=== PATIENT | male | born 1945 | race Caucasian/White ===

== ENCOUNTER 2022-12-04 07:30 | Emergency (ER) | payer OTHER, MEDICARE ==
[~2022-12-04] VITALS: Ht 177.8 cm; Wt 58.6 kg
[2022-12-04 07:35] VITALS: BP 184/112; PULSE 88; RESP 18; TEMP 98.6; O2SAT 98
== END 2022-12-04 09:45 | disposition home or self-care (01) ==
LOC: ER 07:30
DX: M79.601 Pain in right arm (principal); Z88.5 Allergy status to narcotic agent; Z79.899 Other long term (current) drug therapy
CPT/HCPCS: 99282

== ENCOUNTER 2024-12-16 14:49 | Inpatient (IN) | payer OTHER, MEDICARE ==
[~2024-12-16] VITALS: Ht 177.8 cm; Wt 57.7 kg
--- NOTE | 2024-12-16 14:57 | ELECTROCARDIOGRAPH REPORT ---
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
[2024-12-16 15:17] LABS: MEAN PLATELET VOLUME 6.9 FL (7.4-10.4); RED CELL DISTRIBUTION WIDTH 15.4 % (11.5-14.5)
--- NOTE | 2024-12-16 15:24 | RADIOLOGY REPORT ---
CHEST RADIOGRAPH Indication: CP Technique: Single frontal view of the chest was obtained COMPARISON: None FINDINGS: Lines and Tubes: None Lungs: Right upper lobe scarring. Right mid and lower lung airspace disease. Pleura: Small right pleural effusion. No pneumothorax. Cardiomediastinal contours: Unremarkable Bones: Unremarkable IMPRESSION: Right mid and lower lung airspace disease. Small right pleural effusion.
[2024-12-16 15:33] LABS: BANDS% (MANUAL) 1.0 % (0-10); LYMPHOCYTES % (MANUAL) 1.0 % (21-51); MONOCYTES % (MANUAL) 2.0 % (2-12); NEUTROPHILS % (MANUAL) 96.0 % (42-75); PLATELET ESTIMATE INCREASED
[2024-12-16 15:39] LABS: CREATININE 1.08 MG/DL (0.60-1.10); PRO BRAIN NATRIURETIC PEPTIDE 914 PG/ML (0-450); TOTAL CARBON DIOXIDE 30.6 MMOL/L (24-32); eCRCL 47 ML/MIN; eGFR 66 ML/MIN
[2024-12-16] MEDS ORDERED: CefTRIAXone 2gm/NS 100ml IVPB 50 ML IV ONE (17:10)
[2024-12-16] MEDS ORDERED: azithromycin/NS 500mg/250ml 250 ML IV ONE (17:10)
[2024-12-16] MEDS: CefTRIAXone 2gm/D5W 50ml BAG 50 ML IV ONE (17:42)
[2024-12-16] MEDS: normal saline 1000ML IV soln IVB ONE (17:42)
--- NOTE | 2024-12-16 18:12 | Physician Documentation ---
History of Present Illness ~ Chief Complaint: Shortness of Breath Stated Complaint: SOB Time Seen by MD: 18:06 Mode of Arrival: EMS, Stretcher HPI Patient presents to the emergency room with one-week history of increasing shortness of breath. He went to the [facility] today and was instructed go to the emergency room for a chest x-ray abnormality. Patient does occasionally smoke. Medication Reconciliation Allergies: Coded Allergies: morphine (Verified Allergy, Intermediate, FEELS "BUGS IN HIS BLOODSTREAM", 12/04/22) Uncoded Allergies: CONTRAST IV IODINE (Allergy, Unknown, 12/04/22) Scheduled Albuterol Sulfate Nebs* (Proventil Nebs*), 1 VIAL NEB Q4H, (Reported) Amlodipine Besylate (Amlodipine Besylate), 1 TABLET PO DAILY, (Reported) Azithromycin (Azithromycin), 1 TAB PO UD, (Reported) Cefpodoxime Proxetil (Cefpodoxime Proxetil), 1 TAB PO Q12H, (Reported) Diclofenac Sodium (Diclofenac Sodium), 1 APPLIC TOP Q6H, (Reported) Lidocaine (Lidocaine), 1 PATCH TOP DAILY, (Reported) Magnesium Oxide (Magnesium), 1 CAP PO DAILY, (Reported) Prednisone (Prednisone), 1 TAB PO DAILY, (Reported) Rosuvastatin Calcium (Rosuvastatin Calcium), 1 TAB PO DAILY, (Reported) Miscellaneous Medications Tiotropium Br/Olodaterol HCl (Stiolto Respimat Inhaler (10)), (Reported) Review of Systems ROS All review of systems negative except as per HPI Physical Exam Vital Signs: Temperature: 99.5, Source: Oral, Heart Rate: 87, Respiratory Rate: 20, BP: 140/82, Pulse Oximetry: 92, Weight: 57.700 Oxygen Flow Rate: 0 Physical Exam General: Patient is awake, alert, oriented x4 in no acute distress Head: Normocephalic and atraumatic. Eyes: Conjunctival normal. EOMI. PERRL. ENT: Mucous membranes moist. Neck: Supple, trachea is midline. Chest: Clear to auscultation bilaterally without rales, rhonchi, or wheezes. There is no accessory muscle use or retractions. Cardiac: RRR without murmurs, gallops, or rubs. Abd: Soft, nondistended, nontender, with normoactive bowel sounds. No guarding, rebound, or rigidity. Progress Results/Orders Results/Orders Orders - ELVIN GUARDADO MD Page Hospitalist (12/16/24 18:37) Fill Out Med Reconciliation (12/16/24 18:37) Completed Orders - ELVIN GUARDADO MD Azithromycin/Ns 500mg/250ml (Zithromax/N (12/16/24 18:15) Normal Saline 1000ml (0.9% Sodium Chlori (12/16/24 18:15) Medications Received in ER Medications (Trade) Dose Ordered Sig/Emiliano Route PRN Reason Start Time Stop Time Status Last Admin Dose Admin (0.9% sodium chloride (NS) 1000ml IV soln) 1,000 ml ONCE ONCE IVB 12/16/24 17:10 12/16/24 17:12 DC 12/16/24 17:42 1,000 ML Ceftriaxone Sodium/Dextrose 50 ml @ 100 mls/hr ONCE ONCE IV 12/16/24 17:13 12/16/24 17:39 DC 12/16/24 17:42 100 MLS/HR Azithromycin 250 ml @ 250 mls/hr ONCE ONCE IV 12/16/24 18:15 12/16/24 19:14 DC 12/16/24 18:39 250 MLS/HR Sodium Chloride 1,000 ml @ 1,000 mls/hr ONCE ONCE IV 12/16/24 18:15 12/16/24 19:14 DC 12/16/24 18:43 1,000 MLS/HR Sodium Chloride 1,000 ml @ 100 mls/hr Q10H IV 12/16/24 20:00 12/16/24 20:00 100 MLS/HR (Solu-Medrol 40mg inj.) 40 mg BID IV 12/16/24 20:35 12/16/24 21:30 40 MG Vital Signs 12/16/24 12/16/24 12/16/24 12/16/24 14:53 15:36 16:26 18:43 Temp 99.5 99.5 Pulse 106 87 97 Resp 20 19 20 22 B/P (MAP) 140/87 140/82 (101) 155/77 (103) Pulse Ox 95 92 95 O2 Flow Rate 0 0 0 12/16/24 12/16/24 12/16/24 18:49 19:41 19:41 Temp 99.5 Pulse 101 Resp 26 24 B/P (MAP) 146/88 (107) Pulse Ox 96 99 O2 Delivery Nasal Cannula* O2 Flow Rate 3 3 FiO2 32 32 Laboratory Tests Test 12/16/24 15:08 12/16/24 16:57 12/16/24 17:20 12/16/24 17:28 White Blood Count 25.4 *H Red Blood Count 4.03 L Hemoglobin 11.8 L Hematocrit 36.0 L Mean Corpuscular Volume 89.1 Mean Corpuscular Hemoglobin 29.3 Mean Corpuscular Hemoglobin Concent 32.9 L Red Cell Distribution Width 15.4 H Platelet Count 478 H Mean Platelet Volume 6.9 L Neutrophils (%) (Auto) 92.9 H Lymphocytes (%) (Auto) 1.7 L Monocytes (%) (Auto) 5.0 Eosinophils (%) (Auto) 0 Basophils (%) (Auto) 0.4 Neutrophils # (Auto) 23.6 H Lymphocytes # (Auto) 0.4 L Monocytes # (Auto) 1.3 H Eosinophils # (Auto) 0.0 Basophils # (Auto) 0.1 CBC Comment Differential Total Cells Counted 100 Neutrophils % (Manual) 96.0 H Band Neutrophils % 1.0 Lymphocytes % (Manual) 1.0 L Monocytes % (Manual) 2.0 Platelet Estimate Increased Red Blood Cell Morphology Normal Basophilic Stippling Sodium Level 138 Potassium Level 4.2 Chloride Level 104 Carbon Dioxide Level 30.6 Anion Gap 3 L Blood Urea Nitrogen 29 H Creatinine 1.08 Estimated GFR/1.73 m2 66 BUN/Creatinine Ratio 26.9 H Glucose Level 123 H Calcium Level 9.1 Troponin I High Sensitivity 16 15 C-Reactive Protein 22.36 H Pro-B-Type Natriuretic Peptide 914 H Albumin 1.8 L Chemistry Comments Troponin I High Sens Percent Delta 6 Troponin I Hi Sens Absolute Change -1 Lactic Acid Level 0.7 Erythrocyte Sedimentation Rate 92 H Test 12/16/24 17:54 Troponin I High Sensitivity 15 Troponin I High Sens Percent Delta 0 Troponin I Hi Sens Absolute Change 0 Microbiology Date/Time Source Procedure Growth Status 12/16/24 17:54 Blood Hand Right Blood Culture - Preliminary NEGATIVE (LESS THAN 24 HOURS) Resulted EKG/XRAY/CT/US/VASC/MRI EKG : Additional Comment EKG interpreted by myself shows time of 1455, rate 107, sinus rhythm, normal axis, nonspecific ST-T changes Chest X-Ray : Additional Comments Exam: CHEST,SINGLE VIEW CHEST RADIOGRAPH Indication: CP Technique: Single frontal view of the chest was obtained COMPARISON: None FINDINGS: Lines and Tubes: None Lungs: Right upper lobe scarring. Right mid and lower lung airspace disease. Pleura: Small right pleural effusion. No pneumothorax. Cardiomediastinal contours: Unremarkable Bones: Unremarkable IMPRESSION: Right mid and lower lung airspace disease. Small right pleural effusion. Personally reviewed one view chest x-ray and agree with findings Medical Decision Making Findings Patient presents to the emergency room with shortness of breath as per HPI. Differentials include but are not limited to pneumonia, CHF, pneumothorax, pulmonary embolism therefore emergent labs and imaging indicated. Workup consistent with pneumonia. IV antibiotics initiated. Patient's blood pressure is reassuring. Given severity of leukocytosis along with significant findings on chest x-ray I believe he would benefit from admission. Departure Admitted to Inpatient Unit: yes, to hospitalist Impression: Primary Impression: Pneumonia Condition: Guarded Referrals: NO PRIMARY CARE PROVIDER (PCP) Signature Scribe Signature: No scribe Attestation: The note accurately reflects work and decisions made by me.Elvin Guardado MD 12/16/24 18:40 ELVIN GUARDADO MD Dec 16, 2024 18:12
[2024-12-16] MEDS ORDERED: CefTRIAXone/D5W-Rocephin 1gm 50 ML IV ONE (18:15)
[2024-12-16] MEDS: azithromycin/NS 500mg/250ml 250 ML IV ONE (18:39)
[2024-12-16] MEDS: normal saline 1000ml 1,000 ML IV ONE ×2 (18:43→20:35)
[2024-12-16] MEDS ORDERED: PRED10TA23 PO (18:59)
[2024-12-16] MEDS ORDERED: LIDO700A47 TOP (18:59)
[2024-12-16] MEDS ORDERED: DICL100G59 TOP (18:59)
[2024-12-16] MEDS ORDERED: ALB0.5UD NEB (18:59)
[2024-12-16] MEDS ORDERED: ROSU40TA89 PO (18:59)
[2024-12-16] MEDS ORDERED: MAGN400C PO (18:59)
[2024-12-16] MEDS ORDERED: TIOT4MIS8 INH (18:59)
[2024-12-16] MEDS ORDERED: AZIT250T83 PO (18:59)
[2024-12-16] MEDS ORDERED: AMLO10TA PO (18:59)
[2024-12-16] MEDS ORDERED: CEFP100T7 PO (18:59)
[2024-12-16] MEDS ORDERED: magnesium sulf-water 2g/50mL 50 ML IV PRN (20:00)
[2024-12-16] MEDS ORDERED: magnesium Cl slow-release 64mg tablet PO PRN (20:00)
[2024-12-16] MEDS ORDERED: ondansetron/PF 4mg/2ml inj IV PRN (20:00)
[2024-12-16] MEDS ORDERED: potassium Cl 40MEQ/1/2NS 520ml 520 ML IV PRN (20:00)
[2024-12-16] MEDS ORDERED: magnesium sulf-water 4G/100mL 100 ML IV PRN (20:00)
[2024-12-16] MEDS ORDERED: potassium Cl 20 mEq SR tablet PO PRN ×2 (20:00)
[2024-12-16] MEDS: normal saline 1000ml 1,000 ML IV SCH (20:00)
--- NOTE | 2024-12-16 20:14 | HISTORY AND PHYSICAL-Residence ---
History & Physical Providers to CC Resident Creating Document: MONIKA BIRD RES ~ History of Present Illness Reason for Admit\\Complaint: SOB, CP History of Present Illness Mr. Lucia is a 79-year-old male with a history of longstanding smoking (1 cigar/day), COPD (not on home O2), and hypertension who presents with worsening shortness of breath, productive, right-sided chest pain, and fatigue. He was initially evaluated at the [facility] on November 26 with similar symptoms and some confusion. At that time, he was diagnosed with pneumonia and treated with azithromycin, cefpodoxime, and prednisolone. His symptoms initially improved by, however, over the past week he has experienced progressive worsening shortness of breath, severe fatigue, and right-sided pleuritic chest pain that worsens with coughing and deep inspiration. He continues to have a productive cough with green sputum, which has increased in frequency. He reports mild intermittent fever, and poor oral intake for the past two weeks. He denies hemoptysis, hematuria, or hematochezia. He also denies recent travel or contact with sick people. He lives in his house and independent in daily living activities, using a cane/walker for ambulation. I have discussed advance care planning with the patient. The patient has decided on a full code status. Allergies: Coded Allergies: morphine (Verified Allergy, Intermediate, FEELS "BUGS IN HIS BLOODSTREAM", 12/04/22) Uncoded Allergies: CONTRAST IV IODINE (Allergy, Unknown, 12/04/22) Home Medications Home Medications Active Reported Stiolto Respimat Inhaler (10) (Tiotropium Br/Olodaterol HCl) 2.5 Mcg-2.5 Mcg/Actuation Mist.inhal Rosuvastatin Calcium 40 Mg Tablet 1 Tab PO DAILY 30 Days Prednisone 10 Mg Tablet 1 Tab PO DAILY 5 Days Magnesium (Magnesium Oxide) 400 Mg Magnesium Capsule 1 Cap PO DAILY 30 Days Lidocaine 5 % Adh..patch 1 Patch TOP DAILY 30 Days Diclofenac Sodium 1 % Gel..gram. 1 Applic TOP Q6H 21 Days Cefpodoxime Proxetil 100 Mg Tablet 1 Tab PO Q12H 7 Days Azithromycin 250 Mg Tablet 1 Tab PO UD 5 Days 2 the first day followed by 1 for days 2-5 Amlodipine Besylate 10 Mg Tablet 1 Tablet PO DAILY Proventil Nebs* (Albuterol) 2.5 Mg/0.5 Ml Vial.neb 1 Vial NEB Q4H 10 Days Past Medical History Past Medical History COPD, hypertension, hyperlipidemia Past Surgical History Surgical History Comment Minor orthopedic surgery Past Social History Social History Comment He lives in his house and independent in daily living activities, using a cane/walker for ambulation. He has been smoking for the past 40 years; currently smokes one cigar per day. He is not on home oxygen. He denies consuming alcohol or using recreational drugs. ROS All Other Systems: Reviewed and Negative ROS As stated above in the HPI, otherwise all systems are reviewed and negative. Exam Vitals: Vital Signs Date Time Temp Pulse Resp B/P (MAP) Pulse Ox O2 Delivery O2 Flow Rate FiO2 12/16/24 19:41 24 12/16/24 19:41 99.5 101 99 3 32 12/16/24 18:49 Nasal Cannula* General: Slightly confused, but able to communicate HEENT: Conjunctiva pink, Sclera clear, Mucus Membranes moist. Neck: Supple without masses and tenderness. Resp: Air entry reduced right lower lung; right-sided rhonchi, diffuse expiratory wheezing Heart: Regular Rate and rhythm, normal S1 and S2 without murmur, rub or gallop. Abdomen: Soft and non tender no organomegaly Extremities: No cyanosis,clubbing or edema. Skin: Warm and Dry. Diagnostic Data Last Recorded Lab Results: 12/16/24 1508 12/16/24 1508 Advance Care Planning Advanced Care plannin - 30 Minutes Additional Plan Assessment and plan 79-year-old male with a history of COPD, HTN, HLD, current smoker presenting with worsening shortness of breath, pleuritic right-sided chest pain, and productive cough after failing outpatient therapy for presumed community- acquired pneumonia. 1. Sepsis present on admission Most likely secondary to community-acquired pneumonia; failed outpatient treatment Presents with worsening dyspnea, pleuritic right chest pain, productive cough with green sputum, and fatigue after outpatient therapy; azithromycin cefpodoxime, prednisolone failed CXR; right mid lower lobe airspace disease with small right pleural effusion Labs: WBC 25.4, CRP 22.36, lactate 0.7 Preliminary blood culture negative Meets sepsis criteria with leukocytosis, confusion, and systemic inflammatory response Plan Admitted to PCU - telemetry for 24 hours IV hydration; received 2 L NS bolus , continue 100 mL/hours, closely monitor volume status given elevated BNP IV antibiotics; vancomycin and Zosyn Pain management; morphine PRN 2. Acute hypoxemic respiratory failure Requires 3 L oxygen via nasal cannula to maintain saturations Likely due to pneumonia with underlying COPD Continue supplemental oxygen to maintain SpO2 > 90% Monitor ABG if worsening Consider escalation to BiPAP if increasing oxygen requirements Reassess need for respiratory support 3. Acute metabolic encephalopathy secondary to sepsis Patient with intermittent confusion and altered mentation, likely due to sepsis/systemic infection. Being treated for underlying infection Monitor mentation daily Monitor BMP At this time, patient is being kept NPO Fall precaution, aspiration precautions in place Swallow evaluation pending - cough increases with eating 4. COPD with possible exacerbation Baseline COPD with increased cough, sputum, and dyspnea during infection Continue Antibiotic as above Solu-Medrol 40 mg IV twice daily DuoNeb nebulization every 4 hours as scheduled and every 4 hours as needed Incentive spirometry 5. Hypertension Home medications include amlodipine Resume when patient becomes more stable 6. Hyperlipidemia Resume home medications rosuvastatin Lipid panel pending 7. Elevated proBNP Does not appear volume overloaded CXR shows no pulmonary vascular congestions Cautious hydration, monitor volume status Echo pending Course Code status: Full code DVT prophylaxis: Alicia Bird Internal Medicine Resident, PGY 3 Date of Service: Dec 16, 2024 Billing Provider: ROHITH MARTIN MD,MONIKA, RES Dec 16, 2024 20:14
[2024-12-16] MEDS: K and/or MAG REPLACEMENT MC SCH (20:25)
[2024-12-16] MEDS ORDERED: ipratropium/albuterol 3ml nebule NEB PRN (20:25)
[2024-12-16 21:18] VITALS: RESP 19; O2SAT 93
[2024-12-16] MEDS: methylPREDNISolone sod succ/PF 40mg inj. IV SCH (21:30)
[2024-12-16] MEDS: vancomycin/NS 1 GM ADD-VANTAGE 250 ML IV SCH (21:45)
[2024-12-16] MEDS: enoxaparin 40mg/0.4ml syringe SUBCUT SCH (21:52)
[2024-12-16] MEDS: ketorolac trometh 15mg/ml vial 15 MG/ML ML IV ONE (21:56)
[2024-12-16] MEDS: ipratropium/albuterol 3ml nebule NEB SCH (22:04)
[2024-12-16 22:14] VITALS: PULSE 108; RESP 18; O2SAT 90
[2024-12-16 22:25] VITALS: PULSE 96; RESP 26
[2024-12-16 23:20] VITALS: BP 131/76; PULSE 101; RESP 19; TEMP 98.1; O2SAT 3
[2024-12-17] VITALS (17 sets, daily range): BP systolic 131–137; BP diastolic 7–80; PULSE 70–89; RESP 15–24; TEMP 97.1–97.6; O2SAT 87–98
[2024-12-17] MEDS: piperacillin/tazo 3.375gm/50ml 50 ML IV ONE (00:51)
[2024-12-17] MEDS: piperacillin/tazo 3.375gm/50ml 50 ML IV SCH (01:52)
[2024-12-17 07:01] LABS: MEAN PLATELET VOLUME 7.4 FL (7.4-10.4); RED CELL DISTRIBUTION WIDTH 15.8 % (11.5-14.5)
[2024-12-17 07:31] LABS: CREATININE 1.35 MG/DL (0.60-1.10); TOTAL CARBON DIOXIDE 28.9 MMOL/L (24-32); eCRCL 37 ML/MIN; eGFR 51 ML/MIN
[2024-12-17] MEDS: lactose-reduced food (Ensure Enlive) - 237ml bottle PO SCH (13:00)
--- NOTE | 2024-12-17 13:21 | RADIOLOGY REPORT ---
Indication: stool load burden eval Technique: DI ABDOMEN,SINGLE VIEW([id number] Comparison: None FINDINGS/IMPRESSION: Moderate volume stool within the colon most pronounced within the descending and rectosigmoid colon. Elevation right hemidiaphragm. Right basilar airspace opacities and pleural effusion. No evidence for free intraperitoneal air. Severe degenerative disc disease. Lumbar dextrocurvature 1
[2024-12-17] MEDS: psyllium seed 5.8 gm packet (sugar-free) PO SCH (19:47)
--- NOTE | 2024-12-17 21:57 | PROGRESS NOTE ---
Daily Progress Note Providers to CC ~ Antibiotic Timeout Antibiotic Ordered?: Yes Subjective The patient main complaint when I evaluated him was that his bed was too soft. The patient is white blood cell count is downtrending in his lungs are clear. Objective Vital Signs Date Time Temp Pulse Resp B/P (MAP) Pulse Ox O2 Delivery O2 Flow Rate FiO2 12/17/24 20:19 86 18 Nasal Cannula 2.0 12/17/24 20:11 91 21 12/17/24 18:30 97.6 134/71 (92) Result Diagram: 12/17/24 0615 12/17/24 0615 Gen. No acute distress alert and oriented 4 Lungs clear to ascultation bilaterally, no wheezes rales or rhonchi appreciated Heart normal sinus rhythm no murmurs rubs or clicks noted Abdomen soft nontender bowel sounds are normoactive Lower extremities no clubbing cyanosis, nor edema appreciated bilaterally Problem\Assessment\Plan 1. Sepsis present on admission Most likely secondary to community-acquired pneumonia; failed outpatient treatment Presents with worsening dyspnea, pleuritic right chest pain, productive cough with green sputum, and fatigue after outpatient therapy; azithromycin cefpodoxime, prednisolone failed CXR; right mid lower lobe airspace disease with small right pleural effusion Labs: WBC 25.4, CRP 22.36, lactate 0.7 Preliminary blood culture negative Meets sepsis criteria with leukocytosis, confusion, and systemic inflammatory response Plan IV hydration; received 2 L NS bolus , continue 100 mL/hours, closely monitor volume status given elevated BNP IV antibiotics; vancomycin and Zosyn Pain management; morphine PRN 2. Acute hypoxemic respiratory failure Requires 3 L oxygen via nasal cannula to maintain saturations Likely due to pneumonia with underlying COPD Continue supplemental oxygen to maintain SpO2 > 90% Monitor ABG if worsening 12/17 improving 3. Acute metabolic encephalopathy secondary to sepsis Patient with intermittent confusion and altered mentation, likely due to sepsis/systemic infection. Being treated for underlying infection Monitor mentation daily Monitor BMP Fall precaution, aspiration precautions in place 12/17 resolved cognition is at baseline 4. COPD with possible exacerbation Baseline COPD with increased cough, sputum, and dyspnea during infection Continue Antibiotic as above Solu-Medrol 40 mg IV twice daily DuoNeb nebulization every 4 hours as scheduled and every 4 hours as needed Incentive spirometry 5. Hypertension Home medications include amlodipine Resume when patient becomes more stable 6. Hyperlipidemia Resume home medications rosuvastatin Lipid panel pending 7. Elevated proBNP Does not appear volume overloaded CXR shows no pulmonary vascular congestions Cautious hydration, monitor volume status Echo pending 8. ALINA Continue monitor daily CMP May require changing antibiotics Date of Service: Dec 17, 2024 Billing Provider: BRIDGETTE FARRIS DO Common Visit Codes: [id number] INP/OBS CARE(HIGH) BRIDGETTE FARRIS DO Dec 17, 2024 21:57
[2024-12-17] MEDS: vancomycin inj. 750 MG in normal saline 250ml IV soln 250 ML IV SCH (22:03)
[2024-12-17] MEDS: polyethylene glycol 3350 17gm powd pack PO SCH (22:03)
[2024-12-18] VITALS (13 sets, daily range): BP systolic 134–160; BP diastolic 67–82; PULSE 74–92; RESP 15–18; TEMP 97.6–98.2; O2SAT 90–97
[2024-12-18 06:03] LABS: MEAN PLATELET VOLUME 7.1 FL (7.4-10.4); RED CELL DISTRIBUTION WIDTH 15.4 % (11.5-14.5)
[2024-12-18 06:41] LABS: CREATININE 1.15 MG/DL (0.60-1.10); TOTAL CARBON DIOXIDE 25.1 MMOL/L (24-32); eCRCL 44 ML/MIN; eGFR 62 ML/MIN
[2024-12-18] MEDS: TIOTROPIUM BR IH SCH (08:00)
[2024-12-18] MEDS: OLODATEROL HCL IH SCH (08:00)
--- NOTE | 2024-12-18 20:25 | PROGRESS NOTE ---
Daily Progress Note Providers to CC ~ Antibiotic Timeout Antibiotic Ordered?: Yes Subjective The patient is no longer coughing in his white blood cell count is downtrending however the patient did fair with physical therapy however we will require additional PT treatments prior to being discharged. Objective Vital Signs Date Time Temp Pulse Resp B/P (MAP) Pulse Ox O2 Delivery O2 Flow Rate FiO2 12/18/24 19:50 89 18 Room Air 0.0 12/18/24 19:41 93 21 12/18/24 12:03 97.8 135/79 (97) Result Diagram: 12/18/24 0539 12/18/24 0539 Gen. No acute distress alert and oriented 4 Lungs clear to ascultation bilaterally, no wheezes rales or rhonchi appreciated Heart normal sinus rhythm no murmurs rubs or clicks noted Abdomen soft nontender bowel sounds are normoactive Lower extremities no clubbing cyanosis, nor edema appreciated bilaterally Problem\Assessment\Plan 1. Sepsis present on admission Most likely secondary to community-acquired pneumonia; failed outpatient treatment Presents with worsening dyspnea, pleuritic right chest pain, productive cough with green sputum, and fatigue after outpatient therapy; azithromycin cefpodoxime, prednisolone failed CXR; right mid lower lobe airspace disease with small right pleural effusion Labs: WBC 25.4, CRP 22.36, lactate 0.7 Preliminary blood culture negative Meets sepsis criteria with leukocytosis, confusion, and systemic inflammatory response Plan IV hydration; received 2 L NS bolus , continue 100 mL/hours, closely monitor volume status given elevated BNP IV antibiotics; vancomycin and Zosyn Pain management; morphine PRN 12/18 white blood count in his slowly downtrending the patient is afebrile and no longer experiencing a cough 2. Acute hypoxemic respiratory failure Requires 3 L oxygen via nasal cannula to maintain saturations Likely due to pneumonia with underlying COPD Continue supplemental oxygen to maintain SpO2 > 90% Monitor ABG if worsening 12/17 improving 12/18 resolved 3. Acute metabolic encephalopathy secondary to sepsis Patient with intermittent confusion and altered mentation, likely due to sepsis/systemic infection. Being treated for underlying infection Monitor mentation daily Monitor BMP Fall precaution, aspiration precautions in place 12/17 resolved cognition is at baseline 4. COPD with possible exacerbation Baseline COPD with increased cough, sputum, and dyspnea during infection Continue Antibiotic as above DuoNeb nebulization every 4 hours as scheduled and every 4 hours as needed Incentive spirometry 12/18 essentially resolved DC Solu-Medrol and start prednisone in the a.m. 5. Hypertension Home medications include amlodipine Resume when patient becomes more stable 6. Hyperlipidemia Resume home medications rosuvastatin 7. Elevated proBNP Does not appear volume overloaded CXR shows no pulmonary vascular congestions Cautious hydration, monitor volume status 8. ALINA Continue monitor daily CMP Disposition: Continue PT- anticipate discharge after one or two more physical therapy sessions Date of Service: Dec 18, 2024 Billing Provider: BRIDGETTE FARRIS DO Common Visit Codes: [id number] INP/OBS CARE(HIGH) BRIDGETTE FARRIS DO Dec 18, 2024 20:25
[2024-12-19] VITALS (16 sets, daily range): BP systolic 153–169; BP diastolic 75–91; PULSE 64–92; RESP 12–20; TEMP 97.4–98.1; O2SAT 90–95
[2024-12-19 07:43] LABS: MEAN PLATELET VOLUME 7.3 FL (7.4-10.4); RED CELL DISTRIBUTION WIDTH 15.7 % (11.5-14.5)
[2024-12-19 08:31] LABS: CREATININE 0.97 MG/DL (0.60-1.10); TOTAL CARBON DIOXIDE 26.8 MMOL/L (24-32); eCRCL 52 ML/MIN; eGFR 75 ML/MIN
[2024-12-19] MEDS: hydrALAZINE 20mg/ml inj. IV PRN (11:37)
--- NOTE | 2024-12-19 21:17 | PROGRESS NOTE ---
Daily Progress Note Providers to CC ~ Antibiotic Timeout Antibiotic Ordered?: Yes Subjective The patient wanted to go home today however his white blood cell count did up trend a bit. The patient also did okay with physical therapy however did not ambulate stairs. Objective Vital Signs Date Time Temp Pulse Resp B/P (MAP) Pulse Ox O2 Delivery O2 Flow Rate FiO2 12/19/24 19:36 91 18 Room Air 0.0 12/19/24 19:28 91 21 12/19/24 10:00 98.1 162/86 (111) Result Diagram: 12/19/24 0644 12/19/24 0644 Gen. No acute distress alert and oriented 4 Lungs clear to ascultation bilaterally, no wheezes rales or rhonchi appreciated Heart normal sinus rhythm no murmurs rubs or clicks noted Abdomen soft nontender bowel sounds are normoactive Lower extremities no clubbing cyanosis, nor edema appreciated bilaterally Problem\Assessment\Plan 1. Sepsis present on admission Most likely secondary to community-acquired pneumonia; failed outpatient treatment Presents with worsening dyspnea, pleuritic right chest pain, productive cough with green sputum, and fatigue after outpatient therapy; azithromycin cefpodoxime, prednisolone failed CXR; right mid lower lobe airspace disease with small right pleural effusion Labs: WBC 25.4, CRP 22.36, lactate 0.7 Preliminary blood culture negative Meets sepsis criteria with leukocytosis, confusion, and systemic inflammatory response Plan IV hydration; received 2 L NS bolus , continue 100 mL/hours, closely monitor volume status given elevated BNP IV antibiotics; vancomycin and Zosyn Pain management; morphine PRN 12/18 white blood count in his slowly downtrending the patient is afebrile and no longer experiencing a cough 12/19 slight up trend in white blood cell count afebrile and remains otherwise stable 2. Acute hypoxemic respiratory failure Requires 3 L oxygen via nasal cannula to maintain saturations Likely due to pneumonia with underlying COPD Continue supplemental oxygen to maintain SpO2 > 90% Monitor ABG if worsening 12/17 improving 12/18 resolved 3. Acute metabolic encephalopathy secondary to sepsis Patient with intermittent confusion and altered mentation, likely due to sepsis/systemic infection. Being treated for underlying infection Monitor mentation daily Monitor BMP Fall precaution, aspiration precautions in place 12/17 resolved cognition is at baseline 4. COPD with possible exacerbation Baseline COPD with increased cough, sputum, and dyspnea during infection Continue Antibiotic as above DuoNeb nebulization every 4 hours as scheduled and every 4 hours as needed Incentive spirometry 12/18 essentially resolved DC Solu-Medrol and start prednisone in the a.m. 5. Hypertension Continue amlodipine may require a 2nd agent 6. Hyperlipidemia Resume home medications rosuvastatin 7. Elevated proBNP Does not appear volume overloaded CXR shows no pulmonary vascular congestions Cautious hydration, monitor volume status 8. ALINA Continue monitor daily CMP Disposition: Continue PT-has not yet ambulated stairs. Date of Service: Dec 19, 2024 Billing Provider: BRIDGETTE FARRIS DO Common Visit Codes: [id number] INP/OBS CARE(HIGH) BRIDGETTE FARRIS DO Dec 19, 2024 21:17
[2024-12-19] MEDS: VANCOMYCIN LEVEL IV ONE (22:17)
[2024-12-20 05:57] LABS: MEAN PLATELET VOLUME 7.1 FL (7.4-10.4); RED CELL DISTRIBUTION WIDTH 15.4 % (11.5-14.5)
[2024-12-20 06:00] VITALS: BP 177/91; PULSE 78; RESP 15; TEMP 98; O2SAT 96
[2024-12-20 06:34] LABS: CREATININE 0.94 MG/DL (0.60-1.10); TOTAL CARBON DIOXIDE 28.0 MMOL/L (24-32); eCRCL 54 ML/MIN; eGFR 78 ML/MIN
[2024-12-20 07:09] VITALS: PULSE 90; RESP 18; O2SAT 92
[2024-12-20 07:16] VITALS: PULSE 84; RESP 18
[2024-12-20 10:00] VITALS: BP 166/96; PULSE 98; RESP 28; TEMP 97.5; O2SAT 94
[2024-12-20] MEDS ORDERED: LOSA-415 PO (10:24)
[2024-12-20] MEDS ORDERED: LEVO-65 PO (10:24)
[2024-12-20] MEDS ORDERED: PRED20TA PO (10:24)
[2024-12-20] MEDS ORDERED: vancomycin/NS 1 GM ADD-VANTAGE 250 ML IV SCH (22:00)
--- NOTE | 2024-12-20 23:22 | DISCHARGE SUMMARY ---
Discharge Summary Providers to CC ~ Discharge Summary Admission Diagnosis: Sepsis, Pneumonia Hospital Course DATE OF ADMISSION: 12/16/2024 DATE OF DISCHARGE: 12/20/2024 Discharge Diagnosis\\Comment: Sepsis present on admission likely secondary to community-acquired pneumonia NOS, acute hypoxic respiratory failure secondary to COPD exacerbation and community-acquired pneumonia, metabolic encephalopathy secondary to sepsis, COPD with a acute exacerbation, hypertension, hyperlipidemia, ALINA possibly secondary to renal tubular stasis Operations\\Procedures: None Consultants: None Complications: None Condition on DC: Stable New Medications: Levofloxacin (Levofloxacin) 500 Mg Tablet 1 TAB PO DAILY, #5 TAB Losartan Potassium* (Cozaar*) 25 Mg Tablet 1 TAB PO DAILY for 30 Days, #30 TAB Prednisone* (Prednisone*) 20 Mg Tablet 20 MG PO QAM@0830, #3 TAB Continued Medications: Albuterol Sulfate Nebs* (Proventil Nebs*) 2.5 Mg/0.5 Ml Vial.neb 1 VIAL NEB Q4H for shortness of breath for 10 Days, #30 ML Amlodipine Besylate (Amlodipine Besylate) 10 Mg Tablet 1 TABLET PO DAILY, #30 TABLET 5 Refills Diclofenac Sodium (Diclofenac Sodium) 1 % Gel..gram. 1 APPLIC TOP Q6H for 21 Days, #100 GM 0 Refills Lidocaine (Lidocaine) 5 % Adh..patch 1 PATCH TOP DAILY for 30 Days, #30 PATCH 0 Refills Rosuvastatin Calcium (Rosuvastatin Calcium) 40 Mg Tablet 1 TAB PO DAILY for high cholesterol for 30 Days, #30 TAB 0 Refills Tiotropium Br/Olodaterol HCl (Stiolto Respimat Inhaler (10)) 2.5 Mcg-2.5 Mcg/Actuation Mist.inhal 1 INH INH DAILY Discharge Summary: The patient is admitted by resident physician MONIKA Santos under the supervision of ROHITH Villafana MD the following HPI: "Mr. Lucia is a 79-year-old male with a history of longstanding smoking (1 cigar/day), COPD (not on home O2), and hypertension who presents with worsening shortness of breath, productive, right-sided chest pain, and fatigue. He was initially evaluated at the [facility] on November 26 with similar symptoms and some confusion. At that time, he was diagnosed with pneumonia and treated with azithromycin, cefpodoxime, and prednisolone. His symptoms initially improved by, however, over the past week he has experienced progressive worsening shortness of breath, severe fatigue, and right-sided pleuritic chest pain that worsens with coughing and deep inspiration. He continues to have a productive cough with green sputum, which has increased in frequency. He reports mild intermittent fever, and poor oral intake for the past two weeks. He denies hemoptysis, hematuria, or hematochezia. He also denies recent travel or contact with sick people. He lives in his house and independent in daily living activities, using a cane/walker for ambulation. I have discussed advance care planning with the patient. The patient has decided on a full code status." The patient is treated with IV vancomycin and IV Rocephin the patient had s ignificant leukocytosis well with a white blood cell count [id number] this did downtrend and was [id number] on the day discharge. The patient was discovered to have a right mid and lower lobe lung airspace disease consistent with a bacterial pneumonia and the patient is sputum culture grew out Klebsiella oxytoca which was pansensitive however levofloxacin had a very low MARGY and the patient had improved to the point where he could be discharged on the with a five day prescription for 500 mg tablets of levofloxacin. The patient also chronic COPD and was treated IV Solu-Medrol and discharged with prednisone 20 mg daily for an additional three days the patient received nebulizer treatments o and was to continue his home inhalers upon discharge. The patient takes amlodipine for hypertension which was uncontrolled losartan was added to home dose of amlodipine. The patient initially has a metabolic encephalopathy which was likely secondary to sepsis and acute infectious process which had resolved by the morning of the . The patient did have acute respiratory failure as well as secondary to pneumonia and COPD the patient was titrated off oxygen. Gen. No acute distress alert and oriented 4 Lungs clear to ascultation bilaterally, no wheezes rales or rhonchi appreciated Heart normal sinus rhythm no murmurs rubs or clicks noted Abdomen soft nontender bowel sounds are normoactive Lower extremities no clubbing cyanosis, nor edema appreciated bilaterally The patient felt ready to be discharged and was medically cleared to be discharged on 12/20/2024 The patient was seen and evaluated on day of discharge. Time spent on discharge 40 minutes *Problems/Diagnosis: (1) Pneumonia Status: Acute Total Time Spent on D/C: > 30 Minutes Date of Service: Dec 20, 2024 Billing Provider: BRIDGETTE FARRIS DO Common Visit Codes: 52656-XQN/OBS DISCH DAY >30min BRIDGETTE FARRIS DO Dec 20, 2024 23:22
[2024-12-23] MEDS ORDERED: VANCOMYCIN LEVEL IV ONE (21:30)
== END 2024-12-20 11:10 | disposition home health service (06) | DRG 871 ==
LOC: ER 14:49 → ED HOLD 20:40 → EDBEDREQ 22:04 → PCU 3S 23:20 → ORTHO 4S 12-17 13:00
PROVIDERS: ADMIT Internal Medicine Pulmonary Disease; ATTEND Family Medicine
DX: A41.9 Sepsis, unspecified organism (principal); G93.41 Metabolic encephalopathy; J18.9 Pneumonia, unspecified organism; J96.01 Acute respiratory failure with hypoxia; J44.0 Chronic obstructive pulmonary disease with (acute) lower respiratory infection; J44.1 Chronic obstructive pulmonary disease with (acute) exacerbation; N17.9 Acute kidney failure, unspecified; Z20.822 Contact with and (suspected) exposure to COVID-19; I10 Essential (primary) hypertension; E78.5 Hyperlipidemia, unspecified; F17.210 Nicotine dependence, cigarettes, uncomplicated; Z88.8 Allergy status to other drugs, medicaments and biological substances
CPT/HCPCS: 36415; 71045; 74018; 80048; 80053; 80202; 83605; 83880; 84145; 84484; 85007; 85025; 85651; 86140; 87040; 87070; 87077; 87081; 87186; 87811; 92508; 92616; 93005; 94640; 94664; 94760; 96365; 96367; 96375; 97116; 97161; 97530; 97535; 99285; A4615; A6213; G0378; J0360; J0456; J0696; J1650; J1885; J2543; J2919; J3373; J7030; J7050; J7512